=== PATIENT | female | born 1950 | race Caucasian/White ===

== ENCOUNTER 2018-12-01 18:19 | Emergency (ER) | payer MEDICARE ==
[2018-12-01] MEDS ORDERED: OXYMETAZOLINE HCL 100 SPRAYS BOTTLE NAS STA (18:28)
[2018-12-01] MEDS ORDERED: LIDOCAINE 1%-EPI 1:100000 20 ML MDV SUBQ STA (18:28)
--- NOTE | 2018-12-01 18:52 | ED Physician Documentation ---
PD HPI HEENT - Stated complaint Stated Complaint: NOSE BLEED - Chief complaint Chief Complaint: Heent - History obtained from History obtained from: Patient - History of Present Illness Timing - onset: Today (Profuse right-sided nosebleed starting at 530 tonight. She is not anticoagulated. It started after picking a booger out of her nose.) Review of Systems Constitutional: reports: Reviewed and negative Ears: denies: Loss of hearing, Ear pain Nose: denies: Rhinorrhea / runny nose, Congestion, Sinus pressure / pain Throat: denies: Sore throat PD PAST MEDICAL HISTORY - Present Medications Home Medications: Ambulatory Orders Medication Instructions Recorded Confirmed Amoxicillin 500 mg PO TID #20 capsule 12/01/18 - Allergies Allergies/Adverse Reactions: Allergies Allergy/AdvReac Type Severity Reaction Status Date / Time Sulfa (Sulfonamide Allergy Nausea Verified 12/01/18 18:29 Antibiotics) PD ED PE NORMAL - Vitals Vital signs reviewed: Yes - General General: Alert and oriented X 3, No acute distress - HEENT HEENT: Other (Unable to see the source of bleeding on initial examination) - Neck Neck: Supple, no meningeal sign, No bony TTP - Neuro Neuro: Alert and oriented X 3, Normal speech Results - Vitals Vitals: Vital Signs - 24 hr 12/01/18 18:29 Temperature 36.5 C Heart Rate 93 Respiratory 16 Rate Blood Pressure 155/107 H O2 Saturation 98 Oxygen O2 Source Room air Procedures - Epistaxis Site: Right Preparation: Clots removed, Afrin, Lidocaine, Clamp / pressure applied Treatment: Silver Nitrate (unsuccessful, bleeding to profusely), Anterior rhinorocket Other: Observed - no bleeding PD MEDICAL DECISION MAKING - ED course ED course: 68-year-old woman presents with a profuse right-sided nosebleed. After oxym etazoline and lidocaine and a clamp it was still bleeding to profusely to cauterize and an anterior Rhino Rocket was placed. Departure - Departure Disposition: 01 Home, Self Care Clinical Impression: Epistaxis Condition: Good Record reviewed to determine appropriate education?: Yes Instructions: ED Nosebleed, ED Nasal Packing Anterior Removable Prescriptions: Amoxicillin 500 mg PO TID #20 capsule Comments: Return Sunday afternoon for recheck and packing removal, sooner if worse. Your blood pressure was elevated today on check into the emergency department. This does not mean that you have hypertension, it is a common phenomenon to come to the emergency department and have elevated blood pressure. I recommend that you see your primary care physician within the week to have it rechecked when you are feeling better.
[2018-12-01] MEDS ORDERED: AMOXICILLIN 250 MG CAPSULE PO STA (19:28)
[2018-12-01 19:44] VITALS: BP 146/67
== END 2018-12-01 19:43 | disposition home or self-care (01) ==
LOC: ED 18:19
DX: R04.0 Epistaxis (principal); R03.0 Elevated blood-pressure reading, without diagnosis of hypertension
CPT/HCPCS: 30901; 99283; A9270

== ENCOUNTER 2018-12-01 23:00 | Emergency (ER) | payer MEDICARE ==
[2018-12-01] MEDS ORDERED: TRANEXAMIC ACID 1,000 MG/10 ML VIAL NAS STA (23:25)
--- NOTE | 2018-12-01 23:25 | ED Physician Documentation ---
PD HPI HEENT - Stated complaint Stated Complaint: NOSE BLEED - Chief complaint Chief Complaint: Heent - History obtained from History obtained from: Patient - History of Present Illness Timing - onset: Today Timing - details: Abrupt onset, Now resolved (she was seen earlier and had nosebleed treated with balloon (bleeding did not stop enough to cauterize). She says the balloon slipped out when she sneezed about an hour ago. Dabs of blood but the real nosebleed did not return. She was concerned though that she was to have the balloon in for few days, so returned for reinsertion.) Location: Nose Associated symptoms: Rhinorrhea. No: Fever, Congestion Recently seen: Emergency Dept (earlier today) Review of Systems Constitutional: denies: Fever, Chills Nose: reports: Congestion, Epistaxis. denies: Sinus pressure / pain Throat: denies: Sore throat Respiratory: denies: Dyspnea, Cough Endocrine: denies: Easy bruising / bleeding PD PAST MEDICAL HISTORY - Past Medical History Cardiovascular: Hypertension Respiratory: None Neuro: None Endocrine/Autoimmune: None HEENT: None - Present Medications Home Medications: Ambulatory Orders Medication Instructions Recorded Confirmed Aspirin Chewable [[place] 81 mg PO DAILY 12/01/18 12/01/18 Aspirin] Atenolol 25 mg PO BID 12/01/18 12/01/18 Furosemide 20 mg PO DAILY 12/01/18 12/01/18 Gabapentin [Neurontin] 300 mg PO DAILY 12/01/18 12/01/18 Loratadine [Claritin] 10 mg PO DAILY 12/01/18 12/01/18 Losartan Potassium 50 mg PO DAILY 12/01/18 12/01/18 Stearns-3S/Dha/Epa/Fish Oil [Fish 1,200 mg PO DAILY 12/01/18 12/01/18 Oil 1,200 mg Softgel] Simvastatin 20 mg PO DAILY 12/01/18 12/01/18 Turmeric 625 mg PO BID 12/01/18 12/01/18 Vit B1/B2/B6/FA/Mecobalamin 109 mg PO DAILY 12/01/18 12/01/18 [Methaver 109 mg Capsule] Vit D 1,000 mg PO DAILY 12/01/18 12/01/18 amLODIPine [Norvasc] 5 mg PO DAILY 12/01/18 12/01/18 - Allergies Allergies/Adverse Reactions: Allergies Allergy/AdvReac Type Severity Reaction Status Date / Time Sulfa (Sulfonamide Allergy Nausea Verified 12/01/18 23:09 Antibiotics) - Social History Does the pt smoke?: No Smoking Status: Never smoker PD ED PE NORMAL - Vitals Vital signs reviewed: Yes - General General: Alert and oriented X 3, No acute distress, Well developed/nourished - HEENT HEENT: Ears normal, Pharynx benign, Other (anterior nare with small clot of blood on medial wall. No active bleeding. No erosion. ) - Neck Neck: Supple, no meningeal sign, No adenopathy - Derm Derm: Normal color, Warm and dry Results - Vitals Vitals: Vital Signs - 24 hr 12/01/18 12/02/18 23:09 00:03 Temperature 36.5 C Heart Rate 73 55 L Respiratory 16 16 Rate Blood Pressure 168/68 H 147/69 H O2 Saturation 94 100 Oxygen O2 Source Room air Procedures - Epistaxis Site: Right, Anterior Preparation: Lidocaine, Other (TXA) Treatment: Silver Nitrate, Packing inserted (merocel) Other: Observed - no bleeding, Pt tolerated well Departure - Departure Disposition: 01 Home, Self Care Clinical Impression: Epistaxis Condition: Stable Record reviewed to determine appropriate education?: Yes Instructions: ED Nasal Packing Anterior Removable Follow-Up: DAVID BECK MD [Primary Care Provider] - Comments: Leave this foam packing in for 1 to 2 days. Remove it gently. Return if recurrent bleeding that persists despite pinching your nose. Stay well- hydrated. Discharge Date/Time: 12/02/18 00:18
[2018-12-02 00:13] VITALS: BP 147/69
== END 2018-12-02 00:18 | disposition home or self-care (01) ==
LOC: ED 23:00
DX: R04.0 Epistaxis (principal); I10 Essential (primary) hypertension
CPT/HCPCS: 30901